=== PATIENT | female | born 1995 | race Caucasian/White ===

== ENCOUNTER 2016-08-27 09:56 | Day surgery (SDC) | payer OTHER ==
[2016-08-27] VITALS (14 sets, daily range): BP systolic 70–110; BP diastolic 36–61; PULSE 72–109; RESP 12–35; Ht 162.6 cm; Wt 43.0 kg
[~2016-08-27] VITALS: Ht 162.6 cm; Wt 43.0 kg
[~2016-08-27 09:56] MED LIST: ACETAMINOPHEN 1000 MG/100 ML IVPB ONE; CEFAZOLIN 1 GM INJ ONE; ONDANSETRON 4 MG INJ ONE
[2016-08-27] MEDS ORDERED: DEXAMETHASONE 4 MG/ML 1 ML INJ ONE ×2 (12:55→13:35)
[2016-08-27] MEDS ORDERED: LIDOCAINE 1% (MPF) 30 ML INJ ONE (12:55)
[2016-08-27] MEDS ORDERED: BUPIVACAINE 0.5% (SDV) 30 ML INJ ONE (12:55)
[2016-08-27] MEDS ORDERED: POVIDONE IODINE 10% 28.4 GM OINT ONE (12:55)
[2016-08-27] MEDS ORDERED: PROPOFOL 100 ML ONE (12:57)
[2016-08-27] MEDS ORDERED: FENTAnyl 50 MCG/ML VIAL IV PRN ×3 (13:00)
[2016-08-27] MEDS ORDERED: OXYCODONE/ACETAMINOPHEN (5/325) TAB PO PRN ×2 (13:00)
[2016-08-27] MEDS ORDERED: HYDROmorphONE (0.2 MG/ML) 10ML SYG IV PRN ×3 (13:00)
[2016-08-27] MEDS ORDERED: ONDANSETRON 4 MG INJ IV PRN (13:00)
[2016-08-27] MEDS ORDERED: FENTAnyl 50 MCG/ML VIAL ONE (13:01)
[2016-08-27] MEDS ORDERED: MIDAZOLAM 1 MG/ML 2 ML INJ ONE (13:01)
--- NOTE | 2016-08-27 13:17 | HPN ---
Date/Time of Note Date/Time of Note DATE: 08/27/16 TIME: 13:16 Interval H&P Admission Note Pt. seen H&P reviewed: No system changes DELMA CAREY DPM Aug 27, 2016 13:17
[2016-08-27] MEDS ORDERED: GLYCOPYRROLATE 0.4 MG INJ ONE (13:55)
[2016-08-27] MEDS ORDERED: LIDOCAINE 2% (SDV) 5 ML INJ ONE (13:55)
[2016-08-27] MEDS ORDERED: NEOSTIGMINE 3 MG/3 ML SYRINGE ONE (13:55)
--- NOTE | 2016-08-27 14:24 | PREOPHP ---
DATE OF ADMISSION: 08/27/2016 HISTORY OF PRESENT ILLNESS: Patient is being admitted to the hospital for elective foot surgery, pa lliative treatment unsuccessful. Patient has been explained surgery and alternatives and complicati ons and elected to have surgery. The patient is having pain on the 5th digit metatarsophalangeal ar ea, left foot. ALLERGIES: The patient denies. MEDICATIONS: Denies any medicine. REVIEW OF SYSTEMS: Negative for heart, lung, liver, kidney, thyroid. Diabetes negative. SOCIAL HISTORY: Negative smoking and alcohol negative. See any other pertinent history upper extremity physical exam by the [facility]. PHYSICAL EXAMINATION: LOWER EXTREMITY: Shows a DP and PT equal and regular. NEUROLOGICAL: Negative for pathology. DERMATOLOGICAL: Negative for pathology. MUSCULOSKELETAL: Muscular and x-ray findings confirm deformed 5th metatarsophalangeal joint, left f oot. FINAL DIAGNOSIS: Deformed fifth metatarsophalangeal joint, left foot. Dictated By: DELMA CUNNINGHAM/MARKUS Conf#: [id number] DID#: [id number]
--- NOTE | 2016-08-27 14:33 | OPR ---
DATE OF OPERATION: 08/27/2016 PREOPERATIVE DIAGNOSIS: Deformed 5th metatarsophalangeal joint, left foot. POSTOPERATIVE DIAGNOSIS: Deformed 5th metatarsophalangeal joint, left foot. OPERATION: Partial ostectomy fifth metatarsal left foot. SURGEON: Ritika Pantoja DPM DESCRIPTION OF PROCEDURE: The patient was brought to the surgical suite, placed in the supine posit ion. Patient was under general anesthesia. The patient had sterile prep and drape and a tourniquet at mid-thigh. The patient had findings consistent with the pre and postop diagnosis. The first in cision was a dorsal longitudinal incision over the fifth metatarsophalangeal joint. Using sharp and blunt dissection, the incision was carried deep. The Bovie was used as necessary. The longitudina l incision was carried down to the head of the 5th metatarsal base of the proximal phalanx and the e xtensor longus tendon was tenotomized. The extensor expansion was freed and the head of the fifth m etatarsal was freed of its attachment and resected at its surgical neck. The preoperative condition having been relieved, the area was then rasped smooth and cleansed and subcutaneous tissue was coap anayeli using 3-0 Vicryl and the skin was coapted using 5-0 nylon. The area was then injected with 0.5% Marcaine to prolong anesthesia and a dressing of 1/2-inch Steri-Strips, Betadine ointment, 4 x 4's impregnated with Betadine solution and Kartik with an outer layer of Coban. The patient tolerated leal rgery well, was returned to recovery room in satisfactory condition. There was minimum blood loss a nd no complications. Dictated By: DELMA CUNNINGHAM/MARKUS Conf#: [id number] DID#: [id number]
== END 2016-08-27 16:20 | disposition home or self-care (01) ==
LOC: SDS 09:56
PROVIDERS: ATTEND Podiatrist
DX: M20.5X2 Other deformities of toe(s) (acquired), left foot (principal)
CPT/HCPCS: 28288; 84703; 88304; 88311; J0131; J0690; J1100; J1170; J2250; J2405; J2710; J3010; Z7512; Z7610